=== PATIENT | male | born 1965 | race Caucasian/White ===

== ENCOUNTER 2018-03-31 08:20 | Outpatient (CLI) | payer BC ==
[2018-03-31] MEDS ORDERED: Iopamidol 370 76% 100 ML VIAL ONE (10:12)
--- NOTE | 2018-03-31 10:57 | CT ---
CT ABDOMEN AND PELVIS WITH AND WITHOUT CONTRAST: HISTORY: R31.0, gross hematuria. COMPARISON: None. FINDINGS: There is a 4 mm nodule within the right middle lobe, on axial image 2. No pericardial effusion. Low grade edema with the proximal small bowel mesentery and increased number of small lymph nodes. O n the noncontrast portion of the examination, there is a 2 x 3 mm calculus, proximal left ureter, 2 c m distal to the ureteropelvic junction. Minimal dilatation, left renal collecting system. No distal left ureteral calculus. No other renal calculus is appreciated. No right-sided hydroureteronephros is or nephroureterolithiasis. No urinary bladder calculus. No solid enhancing renal mass. No urothelial mass. On the delayed phase of contrast, there is contrast passing beyond the left urete ral calculus. No filling defect within the urinary bladder. The prostate is mildly enlarged with ca lcifications. No calyceal filling defect. No perinephric stranding. No suspicious osteolytic or osteoblastic lesi ons of the skeleton. The pancreas, spleen, liver, and gallbladder are all normal. There are no dilated loops of large or small bowel. The appendix is visualized and is normal. No re troperitoneal adenopathy. There is an area of sclerosis of the left pedicle of L5. This has the salvador ging appearance of a bone island. IMPRESSION: 1. A 2 x 3 mm calculus, proximal left ureter, 2 cm distal to the left ureteropelvic junction, with m inimal left-sided fullness of the collecting system. No significant obstruction, as there is bilater al symmetric enhancement of the kidneys on the delayed phase of contrast. There is contrast proximal and distal to the left ureteral calculus. 2. No other calculus within the renal collecting systems, right ureter, or urinary bladder. 3. No abnormal renal enhancing mass. 4. Low grade sclerosing mesenteritis, proximal small bowel mesentery. 5. A 4 mm nodule in the right middle lobe. In a low-risk patient, no followup is required. In a hi gh-risk patient, follow-up CT chest in one year could be performed. POS: [facility]
== END 2018-03-31 08:21 | disposition home or self-care (01) ==
LOC: CT 08:20
PROVIDERS: ATTEND Urology
DX: R31.0 Gross hematuria (principal); N20.1 Calculus of ureter; R91.1 Solitary pulmonary nodule; K65.4 Sclerosing mesenteritis
CPT/HCPCS: 74178; Q9967